=== PATIENT | female | born 1985 | race Caucasian/White ===

== ENCOUNTER 2017-06-16 16:08 | Emergency (ER) | payer SELFPAY ==
[~2017-06-16] VITALS: Ht 157.5 cm; Wt 54.8 kg
[~2017-06-16 16:08] MED LIST: ANTIVERT25 MG PO; D-VERT25 MG PO; FLEXERIL; FLEXERIL10 MG PO; FLEXERIL5 MG PO; IMITREX; INDOCIN25 MG PO; LEVAQUIN750 MG PO; LIDODERM 5% P1 PATCH TD; MEDROL DOSEPAK4 MG PO; NORCO 5/3251 TABLET PO; NORCO 7.5/321 TABLET PO; PERCOCET 5/31 TABLET PO; PREDNISONE20 MG PO; ZOFRAN4 MG PO
[2017-06-16] MEDS ORDERED: AUGMENTIN875 MG PO (17:37)
[2017-06-16 17:47] VITALS: BP 118/76
== END 2017-06-16 17:48 | disposition home or self-care (01) ==
LOC: EME 16:08
PROC: 3E0234Z Introduction of Serum, Toxoid and Vaccine into Muscle, Percutaneous Approach (ICD-10-PCS; principal; 2017-06-16)
DX: S61.451A Open bite of right hand, initial encounter (principal); S00.91XA Abrasion of unspecified part of head, initial encounter; Z23 Encounter for immunization; W55.01XA Bitten by cat, initial encounter; W55.03XA Scratched by cat, initial encounter
CPT/HCPCS: 73130; 99281; 99284